=== PATIENT | male | born 1940 | race Caucasian/White ===

== ENCOUNTER 2016-05-01 14:32 | Inpatient (IN) | payer MEDICARE, OTHER ==
--- NOTE | 2016-05-01 14:47 | ED ---
General Adult HPI - General Stated complaint: FALL Time Seen by Provider: 05/01/16 14:32 Source: RN notes reviewed - History of Present Illness Initial comments: This is a 76-year-old male who presents to the emergency department after a fall. According to daughter the patient was at his neurologic baseline and very talkative prior to the fall. Patient slipped on some snow on the porch fell backwards and hit his head. Daughter states she came in the house and this when he began to act altered and he eventually got to the point where he was not responding to her at all. EMS arrived they stated that the patient did not respond to them at all and was nonverbal. Daughter states that he is no code and he has not had any kind of surgical procedures because that is the patient's wishes because he has prostate cancer that is metastatic. Patient has some ecchymosis around the right eye which according to the daughter happened a few days ago but she was unaware of until today. Patient is unable to give any history because he is unresponsive at this time. - Related Data Home Medications Medication Instructions Recorded Confirmed Tamsulosin HCl [Flomax] 0.4 mg PO BID 10/03/14 05/01/16 Levothyroxine Sodium [Synthroid] 50 mcg PO DAILY 02/24/16 05/01/16 Dexamethasone [Hexadrol] 4 mg PO BID 03/25/16 05/01/16 Atorvastatin [Lipitor] 10 mg PO HS 05/01/16 05/01/16 Allergies Allergy/AdvReac Type Severity Reaction Status Date / Time No Known Allergies Allergy Verified 05/01/16 15:01 Review of Systems ROS Statement: Those systems with pertinent positive or pertinent negative responses have been documented in the HPI. ROS Other: All systems not noted in ROS Statement are negative. Past Medical History Past Medical History: Cancer, CVA/TIA, Hyperlipidemia, Thyroid Disorder Additional Past Medical History / Comment(s): HX prostate cancer, HX MELANOMA, HX TIA NO RESIDUAL EFFECTS History of Any Multi-Drug Resistant Organisms: None Reported Additional Past Surgical History / Comment(s): urethral dilatation Past Anesthesia/Blood Transfusion Reactions: No Reported Reaction Past Psychological History: No Psychological Hx Reported Smoking Status: Former smoker Past Alcohol Use History: Occasional Additional Past Alcohol Use History / Comment(s): QUIT SMOKING 2008, SMOKED FROM TEENAGER 1PPD Past Drug Use History: None Reported - Past Family History Mother Family Medical History: No Reported History General Exam - General Exam Comments Initial Comments: GENERAL: Patient is well-developed and well-nourished. Patient is unresponsive ENT: Neck is soft and supple. EYES: The sclera were anicteric and conjunctiva were pink and moist. There is ecchymosis around the right eye but this is an old injury according to the daughter PULMONARY: Unlabored respirations. Good breath sounds bilaterally. No audible rales rhonchi or wheezing was noted. CARDIOVASCULAR: There is a regular rate and rhythm without any murmurs gallops or rubs. Femoral pulses are equal bilaterally ABDOMEN: Soft and nontender with normal bowel sounds. No palpable organomegaly was noted. There is no palpable pulsatile mass. SKIN: Skin is clear with no lesions or rashes and otherwise unremarkable. NEUROLOGIC: Patient is unresponsive even to sternal rub. MUSCULOSKELETAL: Normal extremities with adequate strength and full range of motion. PSYCHIATRIC: Unable to evaluate Course Vital Signs 05/01/16 05/01/16 05/01/16 14:35 14:52 15:19 Temperature 97.0 F L Pulse Rate 83 72 86 Respiratory 18 16 20 Rate Blood Pressure 180/89 180/86 149/79 O2 Sat by Pulse 96 100 98 Oximetry 05/01/16 15:40 Temperature Pulse Rate 86 Respiratory 20 Rate Blood Pressure 140/87 O2 Sat by Pulse 98 Oximetry Medical Decision Making - Medical Decision Making patient started having agonal respirations and asked the daughter she wanted us to intervene she said no he is a DO NOT RESUSCITATE CAT scan of the brain shows a high attenuation area in the brain stem and barbara also acute hemorrhage and fourth ventricle. This is consistent with acute hemorrhagic brainstem infarct and subarachnoid hemorrhage I spoke with the family members for which were in the room at the time and they all agreed that they wanted the patient to be Comfortable but wanted no intervention sent no surgeries and no transfer of the patient. Disposition Clinical Impression: Acute brainstem infarction, Unresponsive Disposition: ADMITTED IP TO THIS [facility] Time of Disposition: 15:44
[2016-05-01 15:11] VITALS: TEMP 97
[2016-05-01 15:20] VITALS: PULSE 86
--- NOTE | 2016-05-01 15:37 | CT ---
EXAMINATION TYPE: CT brain cspine wo con DATE OF EXAM: 05/01/2016 3:05 PM COMPARISON: 10/10/2014 HISTORY: Fall CT DLP: 1422.7 mGycm Automated exposure control for dose reduction was used. TECHNIQUE: CT scan of the head and cervical spine are performed without contrast. FINDINGS: There is a patchy 3 x 3 cm area of increased attenuation involving the brainstem and barbara consistent with acute hemorrhage. There is also high attenuation within the fourth ventricle. There is cerebral cortical atrophy. There is patchy hypodensity in the periventricular white matter. There is no midline shift. The cervical vertebra have normal alignment. There is degenerative disc space narrowing throughout th e cervical spine. There is spurring of the endplates at C5-C6 C6-7. The facet joints are intact. Ther e is no compression fracture. The skull base is intact. IMPRESSION: There is high attenuation in the brainstem and barbara with also acute hemorrhage in the fourth ventricl e. This is consistent with acute hemorrhagic brainstem infarct and subarachnoid hemorrhage. There is cerebral atrophy and pre-existing normal pressure type hydrocephalus. There is pre-existing extensive chronic small vessel ischemia. Spondylotic changes in the cervical spine without evidence of a fracture. Report was given verbally to Dr. Powers at 3:30 PM.
[2016-05-01 15:41] VITALS: BP 140/87
[2016-05-01] MEDS ORDERED: SODIUM CHLORIDE 0.9% 1,000 ML IV ONE (15:44)
[2016-05-01 16:35] VITALS: RESP 12
[2016-05-01] MEDS ORDERED: LORazepam 2 MG/ML SYRINGE IV PRN (16:37)
[2016-05-01] MEDS: MORPHINE SULFATE 2 MG/ML SYRINGE IVP PRN (19:37)
[2016-05-02] MEDS: MORPHINE SULFATE 2 MG/ML SYRINGE IVP PRN (03:38)
[2016-05-02] MEDS ORDERED: SCOPOLAMINE 1.5MG/72HR PATCH TRANSDERM STA (15:13)
--- NOTE | 2016-05-02 17:40 | HP ---
DATE OF ADMISSION: Chief complaint is status post fall. HISTORY OF ILLNESS: Mr. Reeves is a 76-year-old male with known history of hyperlipidemia, hypothyroidism, history of CVA/TIA and prostate cancer. He was brought to the hospital status post fall, according to the family the patient was at his neurological baseline, very talkative prior to fall. Patient slipped on snow on the porch and fell backward, hit his head. Daughter said he came into the house and that is when he began to act altered and he eventually got to the point where he was not responding at all. EMS was called as the patient was nonverbal and not responding. Patient had a CT of the cervical spine, showed subarachnoid hemorrhage and acute hemorrhagic with brainstem infarct. Patient does have a history of normal pressure hydrocephalus and currently patient has made DNR and family is at bedside. Patient does have prostate cancer that is metastatic. The patient could not provide any history due to his altered mental status. Complete review of systems could not be obtained from the patient. Past medical history includes prostate cancer metastatic, history of CVA/TIA, hyperlipidemia, hypothyroidism, history of melanoma. PAST SURGICAL HISTORY: Urethral dilatation. SOCIAL HISTORY: Patient is a former smoker; quit in 2008, smoked from teenager, 1 pack per day. FAMILY HISTORY: No reported history, could not obtained at this time. No known drug allergies. Home medications include: 1. Flomax. 2. Levothyroxine. 3. Dexamethasone. 4. Atorvastatin. PHYSICAL EXAMINATION: A 76-year-old male lying in the bed, alert, oriented x0, appears in no apparent distress. VITALS: On admission, blood pressure 180/89, pulse is 83, respirations 18, temperature afebrile, pulse ox 96% on 2 L nasal cannula. HEENT: Patient does have ecchymosis around the right eye sick, sclerae nonicteric, no pallor. Neck is supple, soft. No JVD. CVS EXAM: S1: S1, S2 heard. No murmurs, no gallops. LUNGS: Bilateral air entry is present. Decreased breath sounds bilaterally basally. No wheezing. Abdomen is soft, mild bowel sounds are present. SKIN: No lesions, no rash noted on the skin. NEUROLOGIC: Patient is unresponsive even to sternal rub. PSYCHIATRIC: Could not be obtained. LABORATORY DATA: No laboratory data available. IMPRESSION: 1. Acute, traumatic hemorrhagic brainstem infarct and subarachnoid hemorrhage, status post fall in the snow. 2. History of prostate cancer, metastatic. 3. History of transient ischemic attack/cerebrovascular accident, no residual weakness 4. Hyperlipidemia. 5. Hypothyroidism. 6. History of smoking. DISCUSSION AND PLAN: Patient will be continued on comfort measures as per patient and family wishes. Patient unresponsive, not able to provide any history at this time. Will continue the supportive care and follow up closely. CODE STATUS is DO NOT RESUSCITATE, DO NOT INTUBATE. Prognosis is poor. MTDD
--- NOTE | 2016-05-03 22:22 | DS ---
DATE OF ADMISSION: 05/01/2016 DATE OF EXPIRATION: 05/02/2016 DIAGNOSES: 1. Acute traumatic hemorrhagic brainstem infarct. 2. Subarachnoid hemorrhage, status post fall in the snow. 3. History of prostate cancer, metastatic. 4. History of cerebrovascular accident/transient ischemic attack. No residual weakness. 5. Hyperlipidemia. 6. Hypothyroidism. 7. Previous history of smoking. 8. CODE STATUS is COMFORT MEASURES. HOSPITAL COURSE: Mr. Reeves was a 76-year-old male with known history of multiple medical problems, as discussed above, including CVA/TIA. He was brought to the hospital status post fall - slipped and fell in the snow on the porch and fell backward - and he hit his head. Patient was brought to the hospital, as the patient was unresponsive. Patient had a CT of the spine and head that showed a subarachnoid hemorrhage and acute hemorrhagic brainstem infarct. Due to his clinical condition, the family decided to go with COMFORT MEASURES ONLY. Patient was unresponsive since admission. Patient at 15:16 on 05/02/2016. Family is at bedside and has been notified.
--- NOTE | 2016-05-06 10:14 | CDI ---
In responding to this query, please exercise your independent professional judgment. The [facility] Coding Staff and Clinical Documentation Specialists appreciate your assistance in clarifying documentation, maintaining compliance with coding guidelines, accurately documenting patients condition and capturing severity of illness. The fact that a question is asked does not imply that any particular answer is desired or expected. Communication forms are a method of clarifying documentation and are not made part of the Legal Health Record. Thank you in advance for your clarification. Last Revision, May 2015 Caitlin Coreas [address] [facility] [place] [address] Documentation Clarification Form Date: 05/06/2016 10:04:00 AM From: Marilyn Mazariegostreasure Admit Date: 05/01/2016 3:44:00 PM Patient Name: Maurisio Reeves Visit Number: [id number] Discharge Date: 05/02/2016 Dr. Katie Kolb History/Risk Factors: Acute traumatic hemorrhagic brainstem infarct with subarachnoid hemorrhage post fall Metastatic prostate cancer History of cva/tia Hyperlipidemia Exsmoker Clinical Indicators: Patient unresponsive even to painful stimuli per ED note Started having Agonal Respirations in the ED Breathing documented as 'labored, agonal, gasping' with RR 16-18 on admission Treatment: O2: nonrebreather, ventimask Comfort Measures In your professional opinion, can you please clarify if these findings signify one of the following conditions? o Acute Respiratory failure unknown type o Acute Respiratory failure with hypercapnia o Acute Respiratory failure with hypoxia o Acute Respiratory Distress o Other Diagnosis, please specify o Unable to determine Please document in your progress notes and discharge summary in order to capture severity of illness and risk of mortality. Include clinical findings that support your diagnosis. FYI: Press F11 to launch patient chart. Place X here if this finding has no clinical significance, is not applicable or if you are not able to provide any additional documentation. DANIELLED
--- NOTE | 2016-05-14 08:19 | CDI ---
In responding to this query, please exercise your independent professional judgment. The [facility] Coding Staff and Clinical Documentation Specialists appreciate your assistance in clarifying documentation, maintaining compliance with coding guidelines, accurately documenting patients condition and capturing severity of illness. The fact that a question is asked does not imply that any particular answer is desired or expected. Communication forms are a method of clarifying documentation and are not made part of the Legal Health Record. Thank you in advance for your clarification. Last Revision, May 2015 Caitlin Coreas [address] [facility] [place] [address] Documentation Clarification Form Date: 05/06/2016 10:04:00 AM Resubmitted 05/14/2016 From: Marilyn Sims Admit Date: 05/01/2016 3:44:00 PM Patient Name: Maurisio Reeves Visit Number: [id number] Discharge Date: 05/02/2016 Dr. Katie Kolb History/Risk Factors: Acute traumatic hemorrhagic brainstem infarct with subarachnoid hemorrhage post fall Metastatic prostate cancer History of cva/tia Hyperlipidemia Exsmoker Clinical Indicators: Patient unresponsive even to painful stimuli per ED note Started having Agonal Respirations in the ED Breathing documented as 'labored, agonal, gasping' with RR 16-18 on admission Treatment: O2: nonrebreather, ventimask Comfort Measures In your professional opinion, can you please clarify if these findings signify one of the following conditions? o Acute Respiratory failure unknown type o Acute Respiratory failure with hypercapnia o Acute Respiratory failure with hypoxia o Acute Respiratory Distress o Other Diagnosis, please specify o Unable to determine Please document in your progress notes and discharge summary in order to capture severity of illness and risk of mortality. Include clinical findings that support your diagnosis. FYI: Press F11 to launch patient chart. Place X here if this finding has no clinical significance, is not applicable or if you are not able to provide any additional documentation. CLAUDIO
--- NOTE | 2016-05-17 08:27 | CDI ---
In responding to this query, please exercise your independent professional judgment. The [facility] Coding Staff and Clinical Documentation Specialists appreciate your assistance in clarifying documentation, maintaining compliance with coding guidelines, accurately documenting patients condition and capturing severity of illness. The fact that a question is asked does not imply that any particular answer is desired or expected. Communication forms are a method of clarifying documentation and are not made part of the Legal Health Record. Thank you in advance for your clarification. Last Revision, May 2015 Caitlin Coreas [address] [facility] [place] [address] Documentation Clarification Form Date: 05/06/2016 10:04:00 AM RESUBMITTED 05/17/2016 From: Marilyn Delilahtreasure Admit Date: 05/01/2016 3:44:00 PM Patient Name: Maurisio Reeves Visit Number: [id number] Discharge Date: 05/02/2016 Dr. Katie Kolb: History/Risk Factors: Acute traumatic hemorrhagic brainstem infarct with subarachnoid hemorrhage post fall Metastatic prostate cancer History of cva/tia Hyperlipidemia Exsmoker Clinical Indicators: Patient unresponsive even to painful stimuli per ED note Started having Agonal Respirations in the ED Breathing documented as 'labored, agonal, gasping' with RR 16-18 on admission Treatment: O2: nonrebreather, ventimask Comfort Measures In your professional opinion, can you please clarify if these findings signify one of the following conditions? Acute Respiratory failure unknown type Acute Respiratory failure with hypercapnia Acute Respiratory failure with hypoxia Acute Respiratory Distress Other Diagnosis, please specify Unable to determine Please document in your progress notes and discharge summary in order to capture severity of illness and risk of mortality. Include clinical findings that support your diagnosis. FYI: Press F11 to launch patient chart. Place X here if this finding has no clinical significance, is not applicable or if you are not able to provide any additional documentation. CLAUDIO
--- NOTE | 2016-06-09 15:24 | P.PN ---
Progress Note - Text Addendum to a Discharge Summary for Dr. Kolb Date of expiration 05/02/2016 Final Diagnoses: 9. Acute hypoxic respiratory failure, in a patient with labored ,agonal breathing, requiring nasal cannula of 2 L on admission, secondary to acute traumatic hemorrhagic brainstem infarct with subarachnoid hemorrhage post-fall. The impression and plan of care has been dictated as directed. : I performed a H&P examination of this patient and discussed the same with the dictator. I agree with the dictator's note. Any additional findings/opinions/ etc. will be noted.
== END 2016-05-02 18:47 | disposition expired | DRG 82 ==
LOC: EC 14:32 → 4MS4W 15:44
PROVIDERS: ADMIT Internal Medicine; ATTEND Internal Medicine
DX: J96.01 Acute respiratory failure with hypoxia; G91.2 (Idiopathic) normal pressure hydrocephalus; C79.9 Secondary malignant neoplasm of unspecified site; S00.11XS Contusion of right eyelid and periocular area, sequela; C61 Malignant neoplasm of prostate; Z66 Do not resuscitate; Z51.5 Encounter for palliative care; E78.5 Hyperlipidemia, unspecified; E03.9 Hypothyroidism, unspecified; Z86.73 Personal history of transient ischemic attack (TIA), and cerebral infarction without residual deficits; Z79.52 Long term (current) use of systemic steroids; Z85.820 Personal history of malignant melanoma of skin; Z87.891 Personal history of nicotine dependence; Z79.899 Other long term (current) drug therapy; W00.0XXA Fall on same level due to ice and snow, initial encounter; Y92.008 Other place in unspecified non-institutional (private) residence as the place of occurrence of the external cause
CPT/HCPCS: 70450; 72125; 99285